=== PATIENT | female | born 1975 | race Hispanic/Latino ===

== ENCOUNTER 2020-12-23 01:15 | Inpatient (IN) | payer SELFPAY ==
[2020-12-23 02:28] LABS: BHCG - Serum Negative (NEGATIVE); Pregs Control Background? CLEAR/WHITE (CLR/WHITE); Pregs Control Bar Appear? YES (CONTROL BAR)
[2020-12-23 02:31] LABS: #Eosinphils 0.3 10x3/uL (0.0-0.5); #Monocytes 0.8 10x3/uL (0.0-1.1); #Neutrophils 6.3 10x3/uL (1.5-8.4); %Basophils 0.4 % (0.0-2.0); %Eosinophils 3.3 % (0.0-6.0); %Lymphocytes 27.6 % (18.0-47.0); %Neutrophils 60.3 % (40.0-75.0); Hemoglobin 13.1 g/dL (12.0-15.5); Mean Corpuscular HGB CONC 33.3 g/dL (32.0-36.0); Mean Corpuscular Volume 92.9 fl (81.6-98.3); Mean Platelet Volume 9.4 fl (7.4-10.4); Platelet Count 283 10x3/uL (150-450); RBC Distribution Width 11.9 % (11.5-14.5); Red Blood Cell (RBC) Count 4.23 10x6/uL (3.90-5.03); White Blood Cell (WBC) Count 10.4 10x3/uL (3.5-10.5)
[2020-12-23 02:35] LABS: ALT (SGPT) 47 U/L (8-55); AST (SGOT) 27 U/L (5-34); Albumin 3.5 g/dL (3.5-5.0); Alkaline Phosphatase 62 U/L (40-110); Anion Gap 13 mmol/L (10-20); BUN (Urea Nitrogen) 9 mg/dL (7.0-18.7); Bilirubin, Total 0.5 mg/dL (0.2-1.2); Calc. Creatinine Clearance 0 mL/min (70-130); Calcium 9.5 mg/dL (7.8-10.44); Carbon Dioxide 22 mmol/L (22-29); Chloride 103 mmol/L (98-107); Globulin 3.7 g/dL (2.4-3.5); Glucose 336 mg/dL (70-105); Potassium 3.8 mmol/L (3.5-5.1); Protein, Total 7.2 g/dL (6.0-8.3); Sodium 134 mmol/L (136-145)
[2020-12-23 02:36] LABS: CRP (Inflammatory) 3.54 mg/dL (= or < 0.5)
[2020-12-23] MEDS ORDERED: Ketorolac Tromethamine 30 MG/ML VIAL ONE (02:43)
[2020-12-23] MEDS ORDERED: Cefepime 2 GM VIAL ONE (02:44)
[2020-12-23] MEDS ORDERED: Ondansetron PF 4 MG/2 ML Vial IVP PRN (06:01)
[2020-12-23] MEDS ORDERED: Guaifenesin DM 100-10/5 ML UDCUP PO PRN (06:01)
[2020-12-23] MEDS ORDERED: Calcium Carbonate 500 MG ChewTAB PO PRN (06:01)
[2020-12-23] MEDS ORDERED: Dextrose 50% Abboject 50 ML SYRINGE SLOW IVP PRN (06:01)
[2020-12-23] MEDS ORDERED: Zolpidem Tartrate 5 MG TAB PO PRN (06:01)
[2020-12-23] MEDS ORDERED: Dextrose 5% in Water 1,000 ML IV PRN (06:01)
[2020-12-23] MEDS ORDERED: Senokot S 8.6-50 MG TAB PO PRN (06:01)
[2020-12-23] MEDS ORDERED: Acetaminophen 325 MG TAB PO PRN (06:01)
[2020-12-23] MEDS ORDERED: Albuterol Sulfate 2.5 mg/3 ml Neb NEB PRN (06:06)
[2020-12-23] MEDS ORDERED: Sodium Chloride 0.9% 1,000 ML IV SCH (06:15)
[2020-12-23 06:33] VITALS: BMI 38.2
[2020-12-23] MEDS ORDERED: Vancomycin HCl 1 GM in Sodium Chloride 0.9% 250 ML 250 ML IVPB SCH (07:15)
[2020-12-23 07:30] LABS: SARS-CoV-2 NAA Rapid Test Not Detected (NotDetected)
[2020-12-23] MEDS: Gabapentin 100 MG CAP PO SCH (08:45)
[2020-12-23] MEDS: Enoxaparin Sodium 40 MG/0.4 ML SYRINGE SC SCH (08:45)
[2020-12-23] MEDS: Lantus 1000 UNITS/10 ML VIAL SC SCH (08:45)
[2020-12-23] MEDS: Aspirin 81 mg Enteric Coated Tablet PO SCH (08:46)
[2020-12-23] MEDS: glipiZIDE 5 MG TAB PO SCH ×2 (08:46→17:12)
[2020-12-23] MEDS: Ampicillin/Sulbactam 3 GM in Sodium Chloride 0.9% 100 ML IVPB SCH ×3 (08:47→22:36)
[2020-12-23] MEDS: HumaLOG 300 UNITS/3 ML VIAL SC PRN (11:52)
[2020-12-23] MEDS ORDERED: Vancomycin 1 GM in Premix Bag 1 BAG IVPB SCH (15:00)
[2020-12-23] MEDS: HYDROcodone/Acetaminophen 5/325 mg Tablet PO PRN ×3 (15:04→22:51)
[2020-12-23] MEDS: VANCOMYCIN 1.75 GM in Sodium Chloride 0.9% 500 ML IVPB SCH (18:45)
[2020-12-23] MEDS: Atorvastatin Calcium 40 MG TAB PO SCH (22:33)
[2020-12-24] MEDS: Ampicillin/Sulbactam 3 GM in Sodium Chloride 0.9% 100 ML IVPB SCH ×4 (01:56→23:48)
[2020-12-24 04:51] LABS: Hemoglobin 11.9 g/dL (12.0-15.5); Mean Corpuscular Hemoglobin 30.8 pg (27.0-33.0); Mean Corpuscular Volume 93.5 fl (81.6-98.3); Platelet Count 246 10x3/uL (150-450); RBC Distribution Width 11.6 % (11.5-14.5); Red Blood Cell (RBC) Count 3.86 10x6/uL (3.90-5.03); White Blood Cell (WBC) Count 7.2 10x3/uL (3.5-10.5)
[2020-12-24 04:52] LABS: #Eosinphils 0.3 10x3/uL (0.0-0.5); #Monocytes 0.6 10x3/uL (0.0-1.1); #Neutrophils 3.9 10x3/uL (1.5-8.4); %Basophils 0.6 % (0.0-2.0); %Eosinophils 4.5 % (0.0-6.0); %Lymphocytes 32.9 % (18.0-47.0); %Neutrophils 53.7 % (40.0-75.0); Mean Platelet Volume 9.5 fl (7.4-10.4)
[2020-12-24 05:16] LABS: Anion Gap 12 mmol/L (10-20); BUN (Urea Nitrogen) 8 mg/dL (7.0-18.7); CRP (Inflammatory) 2.48 mg/dL (= or < 0.5); Calc. Creatinine Clearance 221 mL/min (70-130); Calcium 8.4 mg/dL (7.8-10.44); Carbon Dioxide 22 mmol/L (22-29); Chloride 106 mmol/L (98-107); Glucose 306 mg/dL (70-105); Potassium 3.5 mmol/L (3.5-5.1); Sodium 136 mmol/L (136-145)
[2020-12-24] MEDS: HYDROcodone/Acetaminophen 5/325 mg Tablet PO PRN ×4 (06:48→23:46)
[2020-12-24] MEDS: HumaLOG 300 UNITS/3 ML VIAL SC PRN ×3 (06:50→17:31)
[2020-12-24] MEDS: VANCOMYCIN 1.75 GM in Sodium Chloride 0.9% 500 ML IVPB SCH ×2 (07:04→18:38)
[2020-12-24] MEDS: Enoxaparin Sodium 40 MG/0.4 ML SYRINGE SC SCH (08:30)
[2020-12-24] MEDS: Aspirin 81 mg Enteric Coated Tablet PO SCH (08:31)
[2020-12-24] MEDS: Gabapentin 100 MG CAP PO SCH (08:31)
[2020-12-24] MEDS: glipiZIDE 5 MG TAB PO SCH ×2 (08:32→17:30)
[2020-12-24] MEDS: Lantus 1000 UNITS/10 ML VIAL SC SCH ×2 (08:33→17:30)
[2020-12-24] MEDS ORDERED: Morphine 2 MG/ML VIAL SLOW IVP PRN (09:33)
[2020-12-24 19:53] LABS: Vancomycin, Trough 50.5 ug/mL
[2020-12-24] MEDS: Atorvastatin Calcium 40 MG TAB PO SCH (23:49)
[2020-12-25 04:21] LABS: ALT (SGPT) 80 U/L (8-55); AST (SGOT) 54 U/L (5-34); Albumin 3.1 g/dL (3.5-5.0); Alkaline Phosphatase 49 U/L (40-110); Anion Gap 12 mmol/L (10-20); BUN (Urea Nitrogen) 5 mg/dL (7.0-18.7); Bilirubin, Total 0.4 mg/dL (0.2-1.2); Calc. Creatinine Clearance 245 mL/min (70-130); Calcium 8.4 mg/dL (7.8-10.44); Carbon Dioxide 23 mmol/L (22-29); Chloride 105 mmol/L (98-107); Globulin 3.2 g/dL (2.4-3.5); Glucose 197 mg/dL (70-105); Potassium 3.5 mmol/L (3.5-5.1); Protein, Total 6.3 g/dL (6.0-8.3); Sodium 136 mmol/L (136-145)
[2020-12-25 04:23] LABS: #Eosinphils 0.3 10x3/uL (0.0-0.5); #Monocytes 0.6 10x3/uL (0.0-1.1); #Neutrophils 3.2 10x3/uL (1.5-8.4); %Basophils 0.6 % (0.0-2.0); %Eosinophils 4.6 % (0.0-6.0); %Lymphocytes 39.2 % (18.0-47.0); %Monocytes 8.4 % (0.0-10.0); %Neutrophils 47.1 % (40.0-75.0); Hemoglobin 12.4 g/dL (12.0-15.5); Mean Corpuscular HGB CONC 33.6 g/dL (32.0-36.0); Mean Corpuscular Hemoglobin 30.7 pg (27.0-33.0); Mean Corpuscular Volume 91.3 fl (81.6-98.3); Mean Platelet Volume 9.3 fl (7.4-10.4); Platelet Count 267 10x3/uL (150-450); RBC Distribution Width 11.6 % (11.5-14.5); Red Blood Cell (RBC) Count 4.04 10x6/uL (3.90-5.03); White Blood Cell (WBC) Count 6.8 10x3/uL (3.5-10.5)
[2020-12-25] MEDS: Ampicillin/Sulbactam 3 GM in Sodium Chloride 0.9% 100 ML IVPB SCH ×4 (05:04→20:41)
[2020-12-25] MEDS: glipiZIDE 5 MG TAB PO SCH ×2 (07:03→17:18)
[2020-12-25] MEDS: Lantus 1000 UNITS/10 ML VIAL SC SCH ×2 (07:04→17:18)
[2020-12-25 07:10] LABS: Vancomycin, Trough 7.1 ug/mL
[2020-12-25] MEDS: HYDROcodone/Acetaminophen 5/325 mg Tablet PO PRN ×4 (07:12→20:42)
[2020-12-25] MEDS: VANCOMYCIN 1.75 GM in Sodium Chloride 0.9% 500 ML IVPB SCH ×2 (07:32→20:32)
[2020-12-25] MEDS: Aspirin 81 mg Enteric Coated Tablet PO SCH (10:54)
[2020-12-25] MEDS: Gabapentin 100 MG CAP PO SCH (10:54)
[2020-12-25] MEDS: Enoxaparin Sodium 40 MG/0.4 ML SYRINGE SC SCH (10:54)
[2020-12-25] MEDS: HumaLOG 300 UNITS/3 ML VIAL SC PRN ×2 (17:18→21:34)
[2020-12-25] MEDS: Atorvastatin Calcium 40 MG TAB PO SCH (21:15)
[2020-12-26] MEDS: Ampicillin/Sulbactam 3 GM in Sodium Chloride 0.9% 100 ML IVPB SCH ×4 (02:00→21:26)
[2020-12-26] MEDS: HYDROcodone/Acetaminophen 5/325 mg Tablet PO PRN ×4 (02:06→21:29)
[2020-12-26 04:26] LABS: #Basophils 0.1 10x3/uL (0.0-0.2); #Eosinphils 0.4 10x3/uL (0.0-0.5); #Monocytes 0.6 10x3/uL (0.0-1.1); #Neutrophils 2.6 10x3/uL (1.5-8.4); %Basophils 0.8 % (0.0-2.0); %Lymphocytes 43.7 % (18.0-47.0); %Monocytes 9.1 % (0.0-10.0); %Neutrophils 40.1 % (40.0-75.0); Mean Corpuscular HGB CONC 33.5 g/dL (32.0-36.0); Mean Corpuscular Hemoglobin 30.8 pg (27.0-33.0); Mean Platelet Volume 9.5 fl (7.4-10.4); Platelet Count 284 10x3/uL (150-450); RBC Distribution Width 11.7 % (11.5-14.5); Red Blood Cell (RBC) Count 3.89 10x6/uL (3.90-5.03); White Blood Cell (WBC) Count 6.5 10x3/uL (3.5-10.5)
[2020-12-26] MEDS: HumaLOG 300 UNITS/3 ML VIAL SC PRN ×3 (06:28→21:35)
[2020-12-26] MEDS: Lantus 1000 UNITS/10 ML VIAL SC SCH ×2 (06:28→18:26)
[2020-12-26] MEDS: Gabapentin 100 MG CAP PO SCH (08:36)
[2020-12-26] MEDS: Aspirin 81 mg Enteric Coated Tablet PO SCH (08:36)
[2020-12-26] MEDS: Enoxaparin Sodium 40 MG/0.4 ML SYRINGE SC SCH (08:37)
[2020-12-26] MEDS: glipiZIDE 5 MG TAB PO SCH ×2 (08:37→18:26)
[2020-12-26] MEDS: VANCOMYCIN 1.75 GM in Sodium Chloride 0.9% 500 ML IVPB SCH ×2 (10:48→21:26)
[2020-12-26] MEDS: Atorvastatin Calcium 40 MG TAB PO SCH (21:25)
[2020-12-27] MEDS: Ampicillin/Sulbactam 3 GM in Sodium Chloride 0.9% 100 ML IVPB SCH ×4 (02:19→23:07)
[2020-12-27 04:31] LABS: BUN (Urea Nitrogen) 12 mg/dL (7.0-18.7); Calc. Creatinine Clearance 224 mL/min (70-130)
[2020-12-27] MEDS: Vancomycin 1.5 GRAM/300 ML BAG 1.5 GM in Premix Bag 1 BAG IVPB SCH ×3 (04:46→21:34)
[2020-12-27] MEDS: Gabapentin 100 MG CAP PO SCH (09:09)
[2020-12-27] MEDS: Aspirin 81 mg Enteric Coated Tablet PO SCH (10:20)
[2020-12-27] MEDS: Lantus 1000 UNITS/10 ML VIAL SC SCH ×2 (10:20→17:16)
[2020-12-27] MEDS: Enoxaparin Sodium 40 MG/0.4 ML SYRINGE SC SCH (10:20)
[2020-12-27] MEDS: glipiZIDE 5 MG TAB PO SCH ×2 (10:20→17:16)
[2020-12-27] MEDS ORDERED: Lidocaine 1% MPF 2 ML VIAL ONE (12:32)
[2020-12-27] MEDS ORDERED: Lidocaine 1% w/Epinephrine 1:100K 20 ML VIAL ONE (12:59)
[2020-12-27] MEDS ORDERED: Lidocaine 4% Topical Sol 50 ML BOT ONE (13:18)
[2020-12-27] MEDS ORDERED: SUGAMMADEX SODIUM 500 MG/5 ML VIAL ONE (13:18)
[2020-12-27] MEDS ORDERED: Ondansetron PF 4 MG/2 ML Vial ONE (13:20)
[2020-12-27] MEDS ORDERED: Dexamethasone 20 MG/5 ML VIAL ONE (13:20)
[2020-12-27] MEDS ORDERED: Rocuronium Bromide 10 MG/ML (10ML VIAL) ONE (13:20)
[2020-12-27] MEDS ORDERED: PROPOFOL 20 ML ONE (13:20)
[2020-12-27] MEDS ORDERED: Midazolam HCl 2 mg/2 ml Vial ONE (13:20)
[2020-12-27] MEDS ORDERED: Fentanyl 100 MCG/2 ML VIAL ONE (13:20)
[2020-12-27] MEDS ORDERED: Bacitracin 1 PK ONE (13:47)
[2020-12-27] MEDS: HYDROcodone/Acetaminophen 5/325 mg Tablet PO PRN (14:57)
[2020-12-27 19:06] LABS: Vancomycin, Trough 15.9 ug/mL
[2020-12-27] MEDS: Atorvastatin Calcium 40 MG TAB PO SCH (21:34)
[2020-12-27] MEDS: HumaLOG 300 UNITS/3 ML VIAL SC PRN (22:35)
[2020-12-28] MEDS: Ampicillin/Sulbactam 3 GM in Sodium Chloride 0.9% 100 ML IVPB SCH ×2 (01:45→10:09)
[2020-12-28] MEDS: Vancomycin 1.5 GRAM/300 ML BAG 1.5 GM in Premix Bag 1 BAG IVPB SCH (04:18)
[2020-12-28] MEDS: HYDROcodone/Acetaminophen 5/325 mg Tablet PO PRN ×2 (04:28→10:17)
[2020-12-28 04:38] LABS: BUN (Urea Nitrogen) 9 mg/dL (7.0-18.7); Calc. Creatinine Clearance 217 mL/min (70-130)
[2020-12-28] MEDS: HumaLOG 300 UNITS/3 ML VIAL SC PRN (06:15)
[2020-12-28] MEDS: Enoxaparin Sodium 40 MG/0.4 ML SYRINGE SC SCH (10:08)
[2020-12-28] MEDS: Gabapentin 100 MG CAP PO SCH (10:08)
[2020-12-28] MEDS: Aspirin 81 mg Enteric Coated Tablet PO SCH (10:08)
[2020-12-28] MEDS: glipiZIDE 5 MG TAB PO SCH (10:09)
[2020-12-28] MEDS: Lantus 1000 UNITS/10 ML VIAL SC SCH (10:10)
[2020-12-28 12:33] VITALS: BP 123/64; TEMP 97.8
== END 2020-12-28 13:40 | disposition home or self-care (01) | DRG 581 ==
LOC: CSHERS 01:15 → CSHTELE 06:01
PROVIDERS: ADMIT Student in an Organized Health Care Education/Training Program; ATTEND Physician Assistant
PROC: 0J910ZZ Drainage of Face Subcutaneous Tissue and Fascia, Open Approach (ICD-10-PCS; principal; 2020-12-27)
DX: L02.01 Cutaneous abscess of face (principal); B95.62 Methicillin resistant Staphylococcus aureus infection as the cause of diseases classified elsewhere; E78.5 Hyperlipidemia, unspecified; E11.65 Type 2 diabetes mellitus with hyperglycemia; Z79.84 Long term (current) use of oral hypoglycemic drugs; J45.909 Unspecified asthma, uncomplicated; E66.9 Obesity, unspecified; Z68.38 Body mass index [BMI] 38.0-38.9, adult; K04.7 Periapical abscess without sinus; E11.40 Type 2 diabetes mellitus with diabetic neuropathy, unspecified; M54.9 Dorsalgia, unspecified; G89.29 Other chronic pain; Z20.822 Contact with and (suspected) exposure to COVID-19
CPT/HCPCS: 36415; 36416; 70487; 80048; 80053; 80202; 82550; 82565; 83036; 84520; 84703; 85025; 86140; 87040; 87070; 87077; 87081; 87186; 87205; 94760; 96365; 96367; 96368; 96375; J0295; J0692; J1100; J1650; J1815; J1885; J2250; J2405; J2704; J3010; J3370; J3490; J7030; J7050; U0002

== ENCOUNTER 2021-10-23 20:30 | Inpatient (IN) | payer SELFPAY ==
[~2021-10-23 20:30] MED LIST: Iopamidol 300 61% 100 ML VIAL FS ONE
[2021-10-23] MEDS ORDERED: Ketorolac Tromethamine 30 MG/ML VIAL ONE (21:11)
[2021-10-23] MEDS ORDERED: Piperacillin/Tazobactam 3.375 GM VIAL ONE (21:11)
[2021-10-23 22:01] LABS: #Basophils 0.1 10x3/uL (0.0-0.2); #Eosinphils 0.3 10x3/uL (0.0-0.5); #Monocytes 1.1 10x3/uL (0.0-1.1); #Neutrophils 8.2 10x3/uL (1.5-8.4); %Basophils 0.4 % (0.0-2.0); %Eosinophils 2.1 % (0.0-6.0); %Lymphocytes 23.4 % (18.0-47.0); %Monocytes 8.8 % (0.0-10.0); Mean Platelet Volume 9.6 fl (7.4-10.4); Platelet Count 292 10x3/uL (150-450); RBC Distribution Width 11.9 % (11.5-14.5); White Blood Cell (WBC) Count 12.7 10x3/uL (3.5-10.5)
[2021-10-23 22:13] LABS: ALT (SGPT) 22 U/L (8-55); AST (SGOT) 13 U/L (5-34); Albumin 3.6 g/dL (3.5-5.0); Alkaline Phosphatase 50 U/L (40-110); Anion Gap 14 mmol/L (10-20); BUN (Urea Nitrogen) 11 mg/dL (7.0-18.7); Bilirubin, Total 0.9 mg/dL (0.2-1.2); Calc. Creatinine Clearance 0 mL/min (70-130); Calcium 9.1 mg/dL (7.8-10.44); Carbon Dioxide 24 mmol/L (22-29); Chloride 99 mmol/L (98-107); Globulin 3.7 g/dL (2.4-3.5); Glucose 208 mg/dL (70-105); Protein, Total 7.3 g/dL (6.0-8.3); Sodium 133 mmol/L (136-145)
[2021-10-24] MEDS ORDERED: Dextrose 50% Abboject 50 ML SYRINGE SLOW IVP PRN (04:04)
[2021-10-24] MEDS ORDERED: Ondansetron ODT 4 MG TAB PO PRN (04:04)
[2021-10-24] MEDS ORDERED: Morphine 4 MG/ML VIAL SLOW IVP PRN (04:04)
[2021-10-24] MEDS ORDERED: Dextrose 5% in Water 1,000 ML IV PRN (04:04)
[2021-10-24] MEDS ORDERED: Acetaminophen 325 MG TAB PO PRN (04:04)
[2021-10-24 04:54] LABS: #Basophils 0.1 10x3/uL (0.0-0.2); #Eosinphils 0.3 10x3/uL (0.0-0.5); #Monocytes 0.9 10x3/uL (0.0-1.1); #Neutrophils 6.7 10x3/uL (1.5-8.4); %Basophils 0.5 % (0.0-2.0); %Eosinophils 2.6 % (0.0-6.0); %Lymphocytes 26.6 % (18.0-47.0); %Monocytes 8.6 % (0.0-10.0); %Neutrophils 61.4 % (40.0-75.0); Hemoglobin 11.8 g/dL (12.0-15.5); Mean Corpuscular HGB CONC 33.5 g/dL (32.0-36.0); Mean Corpuscular Hemoglobin 30.8 pg (27.0-33.0); Mean Corpuscular Volume 91.9 fl (81.6-98.3); Mean Platelet Volume 9.5 fl (7.4-10.4); Platelet Count 250 10x3/uL (150-450); RBC Distribution Width 11.8 % (11.5-14.5); Red Blood Cell (RBC) Count 3.83 10x6/uL (3.90-5.03)
[2021-10-24] MEDS ORDERED: Piperacillin/Tazobactam 3.375 GM VIAL ONE (04:58)
[2021-10-24] MEDS: Piperacillin/Tazobactam 3.375 GM in Sodium Chloride 0.9% 100 ML IVPB SCH ×3 (05:09→20:12)
[2021-10-24 05:10] LABS: Anion Gap 13 mmol/L (10-20); BUN (Urea Nitrogen) 11 mg/dL (7.0-18.7); Calc. Creatinine Clearance 0 mL/min (70-130); Calcium 8.4 mg/dL (7.8-10.44); Carbon Dioxide 22 mmol/L (22-29); Chloride 104 mmol/L (98-107); Glucose 253 mg/dL (70-105); Magnesium 1.8 mg/dL (1.6-2.6); Sodium 135 mmol/L (136-145)
[2021-10-24 05:55] VITALS: BMI 39.8
[2021-10-24] MEDS: Gabapentin 300 MG CAP PO SCH ×2 (07:45→20:11)
[2021-10-24] MEDS: Docusate 100 MG CAP PO SCH ×2 (07:45→20:11)
[2021-10-24] MEDS: Lisinopril 5 MG TAB PO SCH (07:45)
[2021-10-24] MEDS: Enoxaparin Sodium 40 MG/0.4 ML SYRINGE SC SCH (07:46)
[2021-10-24] MEDS: HYDROcodone/Acetaminophen 7.5/325 mg Tablet PO PRN ×3 (07:49→20:45)
[2021-10-24] MEDS: Polyethylene Glycol 3350 17 GM Packet PO SCH (07:52)
[2021-10-24] MEDS ORDERED: metFORMIN 500 MG TAB PO SCH (08:00)
[2021-10-24] MEDS: VANCOMYCIN 2 GM, Admixture Fee 1 EACH in Sodium Chloride 0.9% 500 ML IVPB SCH ×2 (09:05→22:22)
[2021-10-24] MEDS ORDERED: VANCOMYCIN 2 GRAM/400 ML BAG IVPB SCH (10:00)
[2021-10-24] MEDS: HumaLOG 300 UNITS/3 ML VIAL SC PRN ×3 (11:24→20:34)
[2021-10-24] MEDS: Atorvastatin Calcium 40 MG TAB PO SCH (20:12)
[2021-10-24] MEDS ORDERED: Lantus 1000 UNITS/10 ML VIAL SC SCH (21:00)
[2021-10-25 03:53] LABS: #Basophils 0.1 10x3/uL (0.0-0.2); #Eosinphils 0.2 10x3/uL (0.0-0.5); #Monocytes 0.9 10x3/uL (0.0-1.1); #Neutrophils 7.4 10x3/uL (1.5-8.4); %Basophils 0.5 % (0.0-2.0); %Eosinophils 1.8 % (0.0-6.0); %Lymphocytes 21.6 % (18.0-47.0); %Monocytes 7.9 % (0.0-10.0); %Neutrophils 67.7 % (40.0-75.0); Hemoglobin 11.6 g/dL (12.0-15.5); Mean Corpuscular HGB CONC 32.9 g/dL (32.0-36.0); Mean Corpuscular Hemoglobin 30.4 pg (27.0-33.0); Mean Corpuscular Volume 92.7 fl (81.6-98.3); Mean Platelet Volume 9.6 fl (7.4-10.4); Platelet Count 272 10x3/uL (150-450); RBC Distribution Width 11.9 % (11.5-14.5); Red Blood Cell (RBC) Count 3.81 10x6/uL (3.90-5.03); White Blood Cell (WBC) Count 10.9 10x3/uL (3.5-10.5)
[2021-10-25 03:58] LABS: Anion Gap 14 mmol/L (10-20); BUN (Urea Nitrogen) 11 mg/dL (7.0-18.7); Calc. Creatinine Clearance 217 mL/min (70-130); Calcium 8.2 mg/dL (7.8-10.44); Carbon Dioxide 22 mmol/L (22-29); Chloride 102 mmol/L (98-107); Glucose 229 mg/dL (70-105); Potassium 3.8 mmol/L (3.5-5.1); Sodium 134 mmol/L (136-145)
[2021-10-25] MEDS: Piperacillin/Tazobactam 3.375 GM in Sodium Chloride 0.9% 100 ML IVPB SCH ×3 (05:05→20:59)
[2021-10-25] MEDS: Docusate 100 MG CAP PO SCH ×2 (07:32→20:58)
[2021-10-25] MEDS: Lisinopril 5 MG TAB PO SCH (07:32)
[2021-10-25] MEDS: Enoxaparin Sodium 40 MG/0.4 ML SYRINGE SC SCH (07:33)
[2021-10-25] MEDS: Gabapentin 300 MG CAP PO SCH ×2 (07:33→20:57)
[2021-10-25] MEDS: HumaLOG 300 UNITS/3 ML VIAL SC PRN ×4 (07:40→21:06)
[2021-10-25] MEDS: HYDROcodone/Acetaminophen 7.5/325 mg Tablet PO PRN (07:41)
[2021-10-25] MEDS ORDERED: Ketorolac Tromethamine 30 MG/ML VIAL IVP SCH (08:15)
[2021-10-25] MEDS: Polyethylene Glycol 3350 17 GM Packet PO SCH (08:17)
[2021-10-25 09:42] LABS: Vancomycin, Trough 11.4 ug/mL
[2021-10-25] MEDS: VANCOMYCIN 2 GM, Admixture Fee 1 EACH in Sodium Chloride 0.9% 500 ML IVPB SCH (09:50)
[2021-10-25] MEDS: Ketorolac Tromethamine 30 MG/ML VIAL IVP SCH ×3 (10:47→23:31)
[2021-10-25 12:35] LABS: Hemoglobin A1c 10.7 % (4.0-6.0)
[2021-10-25] MEDS: Vancomycin 1.5 GRAM/300 ML BAG 1.5 GM in Premix Bag 1 BAG IVPB SCH (18:21)
[2021-10-25] MEDS: Atorvastatin Calcium 40 MG TAB PO SCH (20:58)
[2021-10-25] MEDS: Lantus 1000 UNITS/10 ML VIAL SC SCH (21:04)
[2021-10-26] MEDS: Vancomycin 1.5 GRAM/300 ML BAG 1.5 GM in Premix Bag 1 BAG IVPB SCH ×2 (02:37→08:50)
[2021-10-26 04:12] LABS: #Basophils 0.1 10x3/uL (0.0-0.2); #Eosinphils 0.3 10x3/uL (0.0-0.5); #Monocytes 0.9 10x3/uL (0.0-1.1); #Neutrophils 6.3 10x3/uL (1.5-8.4); %Basophils 0.5 % (0.0-2.0); %Lymphocytes 26.3 % (18.0-47.0); %Monocytes 8.9 % (0.0-10.0); Hemoglobin 11.3 g/dL (12.0-15.5); Mean Corpuscular Hemoglobin 30.6 pg (27.0-33.0); Mean Corpuscular Volume 92.7 fl (81.6-98.3); Mean Platelet Volume 9.7 fl (7.4-10.4); Platelet Count 263 10x3/uL (150-450); RBC Distribution Width 11.9 % (11.5-14.5); Red Blood Cell (RBC) Count 3.69 10x6/uL (3.90-5.03); White Blood Cell (WBC) Count 10.4 10x3/uL (3.5-10.5)
[2021-10-26 04:29] LABS: Anion Gap 14 mmol/L (10-20); BUN (Urea Nitrogen) 14 mg/dL (7.0-18.7); CRP (Inflammatory) 5.63 mg/dL (= or < 0.5); Calc. Creatinine Clearance 192 mL/min (70-130); Calcium 8.5 mg/dL (7.8-10.44); Carbon Dioxide 21 mmol/L (22-29); Chloride 105 mmol/L (98-107); Glucose 216 mg/dL (70-105); Potassium 3.8 mmol/L (3.5-5.1); Sodium 136 mmol/L (136-145)
[2021-10-26] MEDS: Piperacillin/Tazobactam 3.375 GM in Sodium Chloride 0.9% 100 ML IVPB SCH ×3 (04:55→23:36)
[2021-10-26] MEDS: HumaLOG 300 UNITS/3 ML VIAL SC PRN ×3 (05:17→16:58)
[2021-10-26] MEDS: Docusate 100 MG CAP PO SCH ×2 (08:50→23:38)
[2021-10-26] MEDS: Enoxaparin Sodium 40 MG/0.4 ML SYRINGE SC SCH (08:50)
[2021-10-26] MEDS: Polyethylene Glycol 3350 17 GM Packet PO SCH (08:50)
[2021-10-26] MEDS: Gabapentin 300 MG CAP PO SCH ×2 (08:51→23:37)
[2021-10-26] MEDS: Lisinopril 5 MG TAB PO SCH (08:51)
[2021-10-26] MEDS: HYDROcodone/Acetaminophen 7.5/325 mg Tablet PO PRN (08:51)
[2021-10-26 09:33] LABS: Vancomycin, Trough 20.6 ug/mL
[2021-10-26] MEDS: Morphine 2 MG/ML VIAL SLOW IVP PRN ×3 (11:33→23:38)
[2021-10-26] MEDS: VANCOMYCIN 1.25 GM/250 ML BAG 1.25 GM in Premix Bag 1 BAG IVPB SCH (16:57)
[2021-10-26] MEDS: Lantus 1000 UNITS/10 ML VIAL SC SCH (23:37)
[2021-10-26] MEDS: Atorvastatin Calcium 40 MG TAB PO SCH (23:38)
[2021-10-27] MEDS: VANCOMYCIN 1.25 GM/250 ML BAG 1.25 GM in Premix Bag 1 BAG IVPB SCH ×3 (03:11→16:36)
[2021-10-27] MEDS: HumaLOG 300 UNITS/3 ML VIAL SC PRN ×3 (05:57→17:10)
[2021-10-27] MEDS: Piperacillin/Tazobactam 3.375 GM in Sodium Chloride 0.9% 100 ML IVPB SCH ×3 (05:57→21:04)
[2021-10-27] MEDS: Morphine 2 MG/ML VIAL SLOW IVP PRN ×2 (06:08→21:05)
[2021-10-27] MEDS: Polyethylene Glycol 3350 17 GM Packet PO SCH (08:32)
[2021-10-27] MEDS: Enoxaparin Sodium 40 MG/0.4 ML SYRINGE SC SCH (08:33)
[2021-10-27] MEDS: Gabapentin 300 MG CAP PO SCH ×2 (08:33→21:48)
[2021-10-27] MEDS: Docusate 100 MG CAP PO SCH ×2 (08:33→21:04)
[2021-10-27 16:31] LABS: Vancomycin, Trough 23.2 ug/mL
[2021-10-27] MEDS: Vancomycin HCl 1 GM in Sodium Chloride 0.9% 250 ML 250 ML IVPB SCH (17:10)
[2021-10-27] MEDS: Lantus 1000 UNITS/10 ML VIAL SC SCH (21:05)
[2021-10-27] MEDS: Atorvastatin Calcium 40 MG TAB PO SCH (21:05)
[2021-10-28] MEDS: Vancomycin HCl 1 GM in Sodium Chloride 0.9% 250 ML 250 ML IVPB SCH ×2 (01:41→09:06)
[2021-10-28] MEDS: Piperacillin/Tazobactam 3.375 GM in Sodium Chloride 0.9% 100 ML IVPB SCH ×3 (04:28→21:21)
[2021-10-28] MEDS: HumaLOG 300 UNITS/3 ML VIAL SC PRN ×3 (06:17→21:19)
[2021-10-28] MEDS: Morphine 2 MG/ML VIAL SLOW IVP PRN ×4 (06:23→21:22)
[2021-10-28] MEDS: Enoxaparin Sodium 40 MG/0.4 ML SYRINGE SC SCH (09:06)
[2021-10-28] MEDS: Polyethylene Glycol 3350 17 GM Packet PO SCH (09:06)
[2021-10-28] MEDS: Senokot S 8.6-50 MG TAB PO PRN (09:07)
[2021-10-28] MEDS: Docusate 100 MG CAP PO SCH ×2 (09:07→21:22)
[2021-10-28] MEDS: Lisinopril 5 MG TAB PO SCH (09:07)
[2021-10-28] MEDS: Gabapentin 300 MG CAP PO SCH ×2 (09:07→21:22)
[2021-10-28] MEDS: Mupirocin 2% Ointment 22 GM Tube TOP SCH ×2 (15:06→21:24)
[2021-10-28] MEDS: Lantus 1000 UNITS/10 ML VIAL SC SCH (21:20)
[2021-10-28] MEDS: Atorvastatin Calcium 40 MG TAB PO SCH (21:22)
[2021-10-28] MEDS: Ondansetron PF 4 MG/2 ML Vial IVP PRN (21:39)
[2021-10-29 04:27] LABS: #Basophils 0.1 10x3/uL (0.0-0.2); #Eosinphils 0.3 10x3/uL (0.0-0.5); #Monocytes 0.7 10x3/uL (0.0-1.1); #Neutrophils 4.4 10x3/uL (1.5-8.4); %Basophils 0.6 % (0.0-2.0); %Lymphocytes 32.8 % (18.0-47.0); %Monocytes 8.8 % (0.0-10.0); %Neutrophils 53.6 % (40.0-75.0); Hemoglobin 11.2 g/dL (12.0-15.5); Mean Corpuscular HGB CONC 34.5 g/dL (32.0-36.0); Mean Platelet Volume 9.2 fl (7.4-10.4); Platelet Count 277 10x3/uL (150-450); RBC Distribution Width 11.9 % (11.5-14.5); Red Blood Cell (RBC) Count 3.61 10x6/uL (3.90-5.03); White Blood Cell (WBC) Count 8.2 10x3/uL (3.5-10.5)
[2021-10-29] MEDS: Piperacillin/Tazobactam 3.375 GM in Sodium Chloride 0.9% 100 ML IVPB SCH (04:39)
[2021-10-29 04:52] LABS: Anion Gap 13 mmol/L (10-20); BUN (Urea Nitrogen) 10 mg/dL (7.0-18.7); Calc. Creatinine Clearance 198 mL/min (70-130); Calcium 8.9 mg/dL (7.8-10.44); Carbon Dioxide 24 mmol/L (22-29); Chloride 103 mmol/L (98-107); Glucose 143 mg/dL (70-105); Potassium 3.6 mmol/L (3.5-5.1); Sodium 136 mmol/L (136-145)
[2021-10-29] MEDS: Morphine 2 MG/ML VIAL SLOW IVP PRN (08:32)
[2021-10-29] MEDS: Polyethylene Glycol 3350 17 GM Packet PO SCH (08:33)
[2021-10-29] MEDS: Enoxaparin Sodium 40 MG/0.4 ML SYRINGE SC SCH (08:33)
[2021-10-29] MEDS: Lisinopril 5 MG TAB PO SCH (08:33)
[2021-10-29] MEDS: Senokot S 8.6-50 MG TAB PO PRN (08:33)
[2021-10-29] MEDS: Mupirocin 2% Ointment 22 GM Tube TOP SCH (08:33)
[2021-10-29] MEDS: Gabapentin 300 MG CAP PO SCH (08:33)
[2021-10-29] MEDS: Docusate 100 MG CAP PO SCH (08:33)
[2021-10-29] MEDS: Ondansetron PF 4 MG/2 ML Vial IVP PRN (08:48)
[2021-10-29 11:42] VITALS: BP 123/74; TEMP 97.3
== END 2021-10-29 15:30 | disposition home or self-care (01) | DRG 603 ==
LOC: CSHERS 20:30 → CSHERHOLD 10-24 00:37 → CSHIMCU 10-24 05:39 → CSHTELE 10-25 19:00
PROVIDERS: ADMIT Family Medicine; ATTEND Internal Medicine
DX: L03.211 Cellulitis of face (principal); Z68.41 Body mass index [BMI] 40.0-44.9, adult; E78.5 Hyperlipidemia, unspecified; J45.909 Unspecified asthma, uncomplicated; R59.1 Generalized enlarged lymph nodes; E11.42 Type 2 diabetes mellitus with diabetic polyneuropathy; E66.01 Morbid (severe) obesity due to excess calories; K04.7 Periapical abscess without sinus; K21.9 Gastro-esophageal reflux disease without esophagitis; Z20.822 Contact with and (suspected) exposure to COVID-19; K02.9 Dental caries, unspecified; Z90.49 Acquired absence of other specified parts of digestive tract; Z98.51 Tubal ligation status; Z90.710 Acquired absence of both cervix and uterus
CPT/HCPCS: 36415; 36416; 70491; 76999; 80048; 80053; 80202; 83036; 83605; 83735; 85025; 86140; 87040; J1650; J1815; J1885; J2270; J2405; J2543; J3370; J3490; J7030; J7050; Q9967; U0003; U0005

== ENCOUNTER 2022-01-12 16:43 | Emergency (ER) | payer SELFPAY ==
[2022-01-12] MEDS ORDERED: Ondansetron ODT 4 MG TAB ONE (18:19)
[2022-01-12] MEDS ORDERED: Lidocaine 1% (PF) 30 ML VIAL ONE (18:19)
[2022-01-12] MEDS ORDERED: Fentanyl 100 MCG/2 ML VIAL ONE (18:20)
== END 2022-01-12 19:29 | disposition home or self-care (01) ==
LOC: CSHERS 16:43
DX: L02.211 Cutaneous abscess of abdominal wall (principal); E11.9 Type 2 diabetes mellitus without complications; E78.5 Hyperlipidemia, unspecified; Z79.4 Long term (current) use of insulin
CPT/HCPCS: 10060; 96372; J2001; J3010; Q0162